=== PATIENT | female | born 1970 | race Caucasian/White ===

== ENCOUNTER → 2020-08-06 12:52 | Outpatient (CLI) | payer OTHER, SELFPAY ==
[2020-08-06 14:53] LABS: COVID19 -Nasal RAPID Negative (Negative)
== END ==
PROVIDERS: Visit Provider Obstetrics & Gynecology
DX: Z01.812 Encounter for preprocedural laboratory examination (principal); Z20.822 Contact with and (suspected) exposure to COVID-19
CPT/HCPCS: 87635

== ENCOUNTER 2020-08-09 07:40 | Day surgery (SDC) | payer OTHER, SELFPAY ==
[2020-08-07 08:20] VITALS: BMI 23.2
[2020-08-09] VITALS (16 sets, daily range): BP systolic 84–119; BP diastolic 57–73; PULSE 68–85; RESP 10–20; TEMP 36.2–37.1; O2SAT 93–100; BMI 23.2
--- NOTE | 2020-08-09 | PATH_ITS ---
[facility] Accession Number: [id number] . 01 Material submitted: . uterus - UTERUS WITH BILATERAL FALLOPIAN TUBES . 02 Diagnosis: Uterus with Bilateral Fallopian Tubes, Hysterectomy and Bilateral Salpingectomy (Weight 114 grams): Cervix with diffuse regions of parakeratosis, suggestive of prolapse, and with reactive features; negative for squamous dysplasia or malignancy. Inflamed endocervix; negative for glandular dysplasia or malignancy. Weakly proliferative endometrium; negative for glandular hyperplasia, cytologic atypia or malignancy. Myometrium with no significant histomorphologic abnormality. Uterine serosa with no significant histomorphologic abnormality. Fallopian tubes x2 with multiple benign paratubal cysts (1-10 mm in greatest dimension); negative for epithelial atypia or malignancy. [facility] 08/13/2020 1112 Local . 02 Electronically signed: . Makayla Wynn MD, Pathologist NPI- [id number] . 01 Gross description: . The specimen is received in formalin, labeled uterus with bilateral fallopian tubes and consists of a 114-gram uterus, cervix and attached bilateral fallopian tubes. The specimen measures 10.0 cm from superior fundus to cervix by 6.0 cm from cornu to cornu by 4.8 cm from anterior to posterior. The serosa is olvera-pink and smooth. The olvera-pink wrinkled ectocervix measures 4.5 x 3.6 cm and there is a 0.9 x 0.5 cm circular probe-patent os. The specimen is bivalved to reveal a olvera-pink herringbone endocervical mucosa. The endometrial cavity measures 4.3 x 2.0 cm and displays a olvera-pink glistening to focally ragged endometrium measuring 0.2 cm in thickness. The myometrium is olvera-pink and trabeculated, measuring 1.9 cm in thickness. The right fallopian tube measures 7.0 cm in length by 0.9 cm in diameter, and the left tube measures 6.0 cm in length by 0.9 cm in diameter. The serosa is pink-purple to olvera-pink and smooth with multiple paratubal cysts ranging from 0.1 to 1.0 cm. Sectioning reveals a olvera mucosa and a stellate lumen measuring 0.4 cm in diameter. Clinic Manager sections are submitted. . A1 - anterior cervix. A2 - posterior cervix. A3 - anterior uterus, full-thickness sections. A4 - posterior uterus, full-thickness sections. A5 - right fallopian tube, order entry representative cross-sections and bisected fimbria. A6-A7 - left fallopian tube, order entry representative cross-sections and bisected fimbria. ([id number]) /MRV 08/10/2020 1342 Local . 02 Pathologist provided ICD-10: N81.6, N81.10, N81.4, N39.3 . 02 CPT . 107576 Performed at: 01 [facility] [address] [place] [address], [place], [place] [id number] MD Raimundo Fu MD Phone: [phone] Performed at: 02 [facility] [address] [place], [place] [id number] MD Jane Alonzo MD Phone: [phone]
--- NOTE | 2020-08-09 07:59 | SUR.OPER ---
Lithotomy on padded OR bed. [place] Pad Positioner under torso. Head on pillow, arms padded and tucked at sides. Legs secured in padded yellow fins stirrups.
[2020-08-09] MEDS: LACTATED RINGERS 1,000 ML 100 ML IV ×4 (08:05→21:39)
[2020-08-09] MEDS: CEFAZOLIN 2 GM/100 ML FROZ.PIGGY IV (08:15)
--- NOTE | 2020-08-09 08:15 | PM.PREOP ---
Pre-operative Note COVID-19 COVID-19 status: Negative Result date/Date tested (Pos, Neg/Pending): 08/06/20 Interval Note History & Physical reviewed/Exam performed by Physician: Yes Changes to H&P: No H&P completed within 30 days and has changed as indicated here:: 08/06/2020
[2020-08-09] MEDS: BUPIVACAINE 0.5% W/ EPI (PF) 30 ML VIAL INJ (08:58)
--- NOTE | 2020-08-09 11:15 | PM.GYNOP.1 ---
Operative Date/Time/Diagnoses Date of procedure: 08/09/20 Time of procedure: 11:15 Pre-op diagnosis: Uterine prolapse Cystocele Stress Urinary Incontinence Post-op diagnosis: same Procedure & Clinicians Procedure: Procedures Operation Date: 08/09/20 08:15 Actual Procedures Side Surgeon p Laparoscopic Assisted Vag Hysterectomy bilateral salpingectomy MD giovanny Valle Anterior/Posterior Repair, TVT with cystoscopy Cristina Helton MD Indications: Uterine prolapse Cystocele Stress urinary incontinence Surgeon: Cristina Helton Mental Health Advanced Practice Nurse: Virginia Ashton Anesthesia Type: General and Local Operative Notes Findings: Six week size prolapsed uterus Normal tubes and ovaries Normal appendix, liver, and gallbladder Closure Type: primary Specimen(s): left tube, right tube and uterus Applied: catheter (To continuous drainage) Estimated blood loss (mL): 150 Blood products transfused: none Procedure in detail: The patient was taken to the operating room where she was placed in the dorsal supine position. After adequate general endotracheal anesthesia was achieved, she was placed in the dorsal lithotomy position, and prepped and draped in the usual sterile fashion. A time-out was performed. A bivalve speculum was placed into the vagina and the anterior lip of the cervix was grasped with a single-tooth tenaculum. The cervical os was sequentially dilated until the Zumi uterine manipulator could pass easily into the endometrial cavity. The single-tooth tenaculum was removed from the anterior lip of the cervix. The bivalve speculum was removed from the vagina. Attention was then turned to the abdomen where 4 cc of 0.25% Marcaine with epinephrine were injected in the umbilical fold. A 5 mm incision was made. The Veress needle was placed into the peritoneal cavity, and its placement confirmed by aspiration and drop test. The abdominal cavity was insufflated with 3.4 L of CO2. The Veress needle was removed, and a 5 mm trocar was placed without difficulty. Two other incisions were made after 4 cc of 0.25% Marcaine with epinephrine were injected, two 5 mm trocars were placed under direct visualization. The right tube was grasped with an atraumatic grasper and the college sports assistant cauterized and cut the mesosalpinx on the right side all the way down to the cornua of the uterus. She then cauterized and cut the utero-ovarian vessels, the broad ligament, and round ligament all the way down to the level of the uterine arteries. This was repeated on the left side with the college sports assistant retracting the left tube and left cornu of the uterus. The instruments were removed from the abdomen. Attention was then turned to the vagina, where the cervix was grasped with a 4 tooth tenaculum. 10 cc of 0.25% Marcaine with epinephrine were injected circumferentially around the cervix. The cervix was circumscribed with a # 10 blade. Using an open moistened Ray-Ellie, the bladder and rectum were dissected off the lower uterine segment and cervix. Anteriorly the peritoneum was identified and entered sharply with the Metzenbaum scissors. A Anh was placed into the anterior cul-de-sac. Posteriorly the peritoneum was grasped with a pickup and entered sharply with the Metzenbaum scissors. The long weighted speculum was placed into the posterior cul-de-sac. The uterosacral cardinal ligament complex on the right was clamped, transected, and suture ligated with 0 Vicryl with the college sports assistant retracting the uterus to the opposite side. This was repeated on the left side with the uterus retracted to the right side by the college sports assistant. The pedicles were tagged with a hemostat. The uterine arteries were clamped, transected, and suture ligated with 0 Vicryl. The uterus and tubes were handed off as specimen. The peritoneum was closed with 2-0 Vicryl in a pursestring suture. The vaginal cuff was closed with simple interrupted sutures with 0 Vicryl. Attention was turned to the anterior wall of the vagina, where 2 Allis clamps were placed at the apex of the cystocele. 3 cc of 0.25% Marcaine with epinephrine were injected and an incision was made between the 2 Allis clamps were is on tele. Wide Allis clamps were placed in the midline of the cystocele, approximately 4. 10 cc of 0.25% Marcaine with epinephrine were injected on either side of the Allis clamps submucosally. The mucosa was undermined with the Metzenbaum scissors and the wide Allis clamps were moved to the edges of the mucosa. Using a 10. Blade, and an open moistened Ray-Ellie with retraction from the college sports assistant, the fascia was dissected off of the mucosa. The fascia was reapproximated with 0 Vicryl with horizontal mattress sutures. The excess vaginal mucosa was excised. The mucosa was closed with 2 0 Vicryl with simple interrupted sutures including the underlying fascia to close the space. The college sports assistant retracted and cut suture. A decision was made to not proceed with a sacral spinous ligament fixation due to the length of the vagina. The catheter was removed from the bladder. 100 cc of injectable saline was injected behind the pubic symphysis into the space of Retzius with a spinal needle. 3 cc of cord % Marcaine with epinephrine were injected submucosally approximately 1.5 cm from the urethral meatus. A 1 cm incision was made. This was dissected out laterally with the Metzenbaum scissors. A rigid catheter was placed into the bladder and placed along the patient's left thigh retracting the bladder away from the patient's left side. 10 cc of 0.25% Marcaine with epinephrine were injected along the proposed tract of the TVT on the left side. This was repeated on the patient's right side with the bladder retracted away from the patient's right side. Using Hegar dilators up to the # 6, the proposed path of the TVT was dissected bluntly with the Hegar dilators with the bladder retracted away from the side being dilated. With an Allis clamp in the midline of the overlapping plastic on the TVT, the TVT was directed towards the patient's left shoulder with the bladder retracted away from the left side. The TVT was directed up behind the pubic symphysis and an incision was made approximately 3 finger breaths from the midline and the TVT introducer was pulled through the anterior abdominal wall. This was all repeated on the patient's right side with the bladder retracted away from the patient's right side. The bladder was filled with 240 cc of sterile water. A cystoscopy was performed and there was a small piece of introducer visible in the bladder on the patient's left side. The bladder was emptied and the bladder was retracted away from the patient's right side and the TVT was again directed towards the patient's left shoulder and up behind the pubic symphysis. The introducer was pulled through the anterior abdominal wall. The cystoscopy was repeated and there was no breach of the bladder. The TVT was then pulled with a space of about 5 mm between the urethra and the TVT vaginally. The patient was made to cough and there was no leaking of urine. The introducers of the TVT were cut and the plastic surrounding the TVT was grasped with hemostats. The plastic sheath on the TVT was removed with the help of the college sports assistant pulling on hemostats attached to the plastic. The TVT was then cut below the skin line with care not to overtighten vaginally. Pressure was held for hemostasis in the midline vaginally. The college sports assistant closed the incisions on the abdomen. The vaginal incision was closed with 4-0 Vicryl with a running interlocking stitch. Hemostasis was achieved. Allis clamps were placed at the mucocutaneous junction of the vagina. 6 cc of 0.5% Marcaine with epinephrine were injected. An incision was made between the 2 Allis clamps and a triangular piece of skin and underlying subcutaneous layer was excised. The levator muscle was reapproximated with 0 Vicryl. The vaginal mucosa and subcutaneous layer were closed with 2-0 Vicryl in simple interrupted sutures. The skin was closed with 2 0 chromic in a subcuticular fashion. Vaginal packing was placed. The catheter in the bladder was hooked to a bag. There was no blood in the urine. Sponge, lap, and instrument counts were correct x2. The patient tolerated the procedure well, and was taken to PACU in stable condition. Complications: none Post-operative Condition: stable Disposition: PACU Plan for aftercare: To acute care after recovery
--- NOTE | 2020-08-09 11:40 | SUR.PHASEI ---
Pt. into phase 1 at 1114, unable to fix it in chart for some reason...
[2020-08-09] MEDS: OXYCODONE/ACETAMINOPHEN 5/325 TABLET 1 TAB PO ×3 (11:46→20:44)
[2020-08-09] MEDS: KETOROLAC 30 MG/ML VIAL IV ×3 (13:05→23:23)
[2020-08-09] MEDS: INFLUENZA VACCINE 0.5 ML SYRINGE IM (14:17)
--- NOTE | 2020-08-09 15:31 | PC.NURSE ---
Pt to floor from PACU at 1200 with Bautista draining to gravity, RA, A&O X4, pt denies nausea and pain, oriented to call light and room; IV fluids infusing; IS 2000 X 10 breaths; pt will use call light for pain medication when needed
[2020-08-09 15:43] LABS: Estimated Glomerular Filt Rate > 60.0 mL/min (>60)
[2020-08-09] MEDS: DOCUSATE 250 MG CAPSULE PO (20:44)
[2020-08-09] MEDS: HYDROMORPHONE 0.5 MG INJ IV (23:59)
[2020-08-10] VITALS: BP 99/59; PULSE 106; RESP 22; TEMP 36.4; O2SAT 100
--- NOTE | 2020-08-10 00:18 | PC.NURSE ---
Evening Shift Note- patient called complaining of increased pain or 8-9/10 to LLQ. Patient shaking uncontrollably due eden pain. Patiehnt reports it hurts to even touch LLQ lap site with even the sheet. Vial signs WNL. No swelling or change of color to LLQ lap site. Called hakeem BHARDWAJ. Recieved a one time order for IV dilaudid and orders to call back in it did not help. IV dialudid given and patient reassessed after 20min. Patient appears to be resting quietly in bed with eyes closed at this time. Safety measures in place. Call mehta and phone within reach. will continue to monitorl.
[2020-08-10] MEDS: OXYCODONE/ACETAMINOPHEN 5/325 TABLET 1 TAB PO ×3 (01:03→09:12)
[2020-08-10 05:00] VITALS: BP 104/65; PULSE 76; RESP 20; TEMP 36.5; O2SAT 100
[2020-08-10 05:35] LABS: Add Manual Diff / Slide Review NO; Basophils Absolute Auto 0 /uL (0-100); Basophils Percent Auto 0.2 % (0-2); Eosinophils Absolute Auto 0 /uL (0-450); Eosinophils Percent Auto 0.1 % (2-4); Hematocrit 31.2 % (36-46); Hemoglobin 10.7 g/dL (12.0-16.0); Lymphocytes Absolute Auto 1600 /uL (1100-4500); Lymphocytes Percent Auto 10.9 % (25-40); Mean Corpuscular HGB Conc 34.3 % (30-36); Mean Corpuscular Volume 84.5 fL (80-100); Monocytes Absolute Auto 1100 /uL (0-900); Monocytes Percent Auto 7.6 % (3-14); Neutrophils Absolute Auto 11600 /uL (1500-7000); Neutrophils Percent Auto 81.2 % (50-75); Platelet Count 230 X10^3/uL (150-400); Red Blood Cell Count 3.69 X10^6/uL (4.0-5.2); Red Cell Distribution Width 12.6 % (11.6-14.8); White Blood Cell Count 14.3 X10^3/uL (4.5-11.0)
[2020-08-10] MEDS: KETOROLAC 30 MG/ML VIAL IV (06:25)
[2020-08-10 07:45] VITALS: BP 102/55; PULSE 72; RESP 16; TEMP 36.2; O2SAT 100
--- NOTE | 2020-08-10 08:10 | PC.NURSE ---
SHIFT NOTE: CALLED DR WAN, RECEIVED VTO TO REMOVE PACKING. PACKING REMOVED PER ORDER, PATIENT TOLERATED WELL. ASSISTED PATIENT UP TO RECLINER, FRESH PERIPAD AND DISPOSABLE UNDERWEAR, YEH DRAINING WITH LIGHT YELLOW CLEAR URINE. PATIENT RATES PAIN 2/10 AT REST.
[2020-08-10] MEDS: CITALOPRAM 10 MG TABLET 60 MG PO (08:15)
[2020-08-10] MEDS: DOCUSATE 250 MG CAPSULE PO (08:15)
--- NOTE | 2020-08-10 11:33 | PC.NURSE ---
DISCHARGE: PATIENT UP TO RECLINER FOR BREAKFAST AT START OF SHIFT. IV SL'D. TOLERATED WELL. ICE PACK TO INCISIONS. TOLERATING PAIN LEVELS WITH MEDS ORDERED. SCANT VAGINAL BLEEDING. PACKING WAS REMOVED EARLY THIS AM, AFTER CALL TO CLARIFY ORDER W/ DR. WAN THIS AM. PATIENT'S SPOUSE ARRIVED. LEGBAG AND YEH CATH CARE AND TEACHING PROVIDED TO THEM BOTH. PATIENT ABLE TO PERFORM INDEP WITH VERBAL CUES THROUGHOUT. CONFIRMS UNDERSTANDING IMPORTANCE OF KEEPING PORTS CLEAN WHEN WITH ALCOHOL WIPES. MANY SUPPLIED TO HER. HANDOUTS PROVIDED ON YEH CARE AND REVIEWED W/ PATIENT SHE CONFIRMS UNDERSTANDING. INFORMED HER THAT IF SHE IS CONCERNED, IS NOT HAVING UOP, OR HAVING INCREASED ABD PAIN TO CALL CLINIC AND SPEAK W/ THE DOCTOR PORTABLE IRRIGATION OPERATOR, OR PRESENT TO THE EMERGENCY DEPT. PATIENT LEFT W/ ALL BELONGINGS AND PAPERWORK WITH RENDERING EQUIPMENT TENDER ESCORT WITHOUT S/SX'S OF DISTRESS. SHE WILL RAMP JOCKEY HER SCRIPTS ON THE WAY HOME.
--- NOTE | 2020-08-10 12:28 | CM.IDA ---
Initial DCP Assessment Note Pt is a 50 yo female, resident of [place], now POD#1 from lap vag hysterectomy and bilateral salpingectomy, cystocele PCP: Yulia Whelan Payer: Azul Reviewed chart, pt discussed in multidisciplinary rounds this morning, patient expected to DC home w/spouse, burrell will remain in until outpatient f/u to remove. Patient eager to return home, no needs identified from this [place], home w/supportive spouse. TATIANA Villagran
--- NOTE | 2020-08-14 06:51 | P.DS_ITS ---
History of Present Illness History of Present Illness Date Patient Seen: 08/10/20 Time Patient Seen: 09:30 Chief complaint: OPB Narrative: Patient is a 50-year-old postop day # 1 status post LAVH/bilateral salpingectomy/anterior repair/TVT with cystoscopy/perineorrhaphy. Her catheter remains in place due to a cystotomy. The vaginal packing has been removed. The patient's pain is well controlled. No nausea or vomiting. She has ambulated and tolerated a diet. Discharge Providers Provider Discharge Date: 08/10/20 Primary care physician: Yulia Whelan PA-C Discharge provider: Cristina Helton MD Summary Hospital Course Discharge Diagnosis: Status post LAVH/bilateral salpingectomy/anterior repair/TVT with cystoscopy Cystotomy Hospital Course: Patient presented on August 09, 2020 for scheduled LAVH/bilateral salpingectomy/anterior repair/TVT with cystoscopy/perineorrhaphy. She underwent this procedure with complication including cystotomy. Her catheter remains in place. Her vaginal packing was removed this morning. She is discharged home on August 10, 2020 tolerating a diet, pain well controlled, ambulating, and without nausea or vomiting. Status at Discharge Cognitive/behavioral status at discharge: oriented Functional status at discharge: independent ambulation Time Spent with Patient Time spent: Less than 30 minutes Exam Vital Signs (past 8 hours): Oxygen Delivery Method Room Air Oxygen Flow Rate 0 Narrative Exam Narrative: Generally: A well-developed, well-nourished female, no acute distress Lungs: Clear to auscultation bilaterally Cardiovascular: Regular rate and rhythm Abdomen: Soft and flat. Good bowel sounds. Incisions: Clean dry and intact with bandages. Perineum: Small amount of old blood. Urine: Clear, yellow Objective Labs Result Diagrams: 08/10/20 05:15 08/09/20 15:15 [facility] Medical History (Updated 08/13/20 @ 16:57 by Lilliam Stout DO) Abnormal Pap smear of cervix (~1996) Anxiety (~1999) Depression Eczema History of urinary incontinence (~2009) Human papilloma virus (~1996) Infertility (~1999) Shingles (~2008) Uterine prolapse (~2018) Surgical History (Updated 06/17/20 @ 11:12 by Cristina Helton MD) H/O LEEP (~1997) History of breast lump removal (~1993) Status post wisdom tooth extraction Family History (Updated 05/14/20 @ 19:32 by Carolina Hemphill) Father Accident Mother Diabetes mellitus Breast cancer Grandmother Breast cancer Social History household members: spouse Smoking Status: Never smoker Discharge Assessment & Plan Assessment and Plan Assessment: 50-year-old postop day # 1 status post LAVH/bilateral salpingectomy/anterior repair/TVT with cystoscopy/perineorrhaphy Patient doing well with catheter in place. Plan of Treatment: Discharged home Follow-up in 6 days for catheter removal Patient to call with fever, chills, redness or drainage around the incisions, bleeding vaginally more than spotting to light, or if there is blood in the urine. Discharge Plan Discharge Plan Patient Disposition: Home Provider Discharge Comment: Call with fever, chills, redness or drainage around incisions or bleeding vaginally more than spotty to light Ibuprofen 600mg every 6 hours Tylenol 650mg every 6 hours Codeine every 3 hours as needed Stool softner twice a day until back to normal and then once a day Anti nausea medicine as needed Discharge orders & Medications Discharge Orders: Discharge (Order); Ordered 08/10/20 Ordered By: Cristina Helton Prescriptions: New oxycodone 5 mg tablet 5 mg PO QID PRN (Reason: pain) Qty: 30 RF: 0 ondansetron 4 mg tablet,disintegrating 4 mg PO Q6H PRN (Reason: nausea and vomiting) Qty: 14 RF: 2 nitrofurantoin macrocrystal [Macrodantin] 100 mg capsule 100 mg PO BID Qty: 14 RF: 0 Continued citalopram 20 mg tablet See Rx Instructions .ROUTE .COMPLEX Qty: 30 RF: 1 citalopram 40 mg tablet See Rx Instructions .ROUTE .COMPLEX Qty: 30 RF: 1 No Action belladonna alkaloids-opium 16.2-30 mg suppository 1 supp IL QID PRN (Reason: pain) Qty: 12 RF: 0 Follow up/Referrals: Cristina Helton MD [Physician] - 08/15/20 10:30 am (PLEASE KEEP YOUR FOLLOW UP APPOINTMENT WITH DR. HELTON ON THURSDAY FOR YOUR EYH REMOVAL SCHEDULED.) Yulia Whelan PA-C [Primary Care Provider] - Diet/Activity/Treatments Diet: Regular Activity: No heavy lifting, nothing more than a gallon of milk Catheter: 2-way Yeh Skin/Wound/Dressing Care Report to your healthcare provider any signs of infection, such as:: chills, fever, increased pain, unusual drainage and unusual redness Dressing: Remove pink dressings with attached guaze in 3 days Visit Report/Discharge Packet Instructions: DI for Hysterectomy, DI for Laparoscopy, How to Care for Your Yeh Catheter -- Female Stand Alone Forms: Surgery Discharge Discharge Data Primary Care Provider: Yulia Whelan Attending Provider: Cristina Helton VTE Deep Vein Thrombosis/Pulmonary Embolism Present on Admission: No
== END 2020-08-10 11:30 | disposition home or self-care (01) ==
LOC: OR 12:21 → AC 12:21
PROVIDERS: PCP Physician Assistant Medical; Referring Provider Obstetrics & Gynecology; Visit Provider Obstetrics & Gynecology
PROC: 0UT9FZZ Resection of Uterus, Via Natural or Artificial Opening With Percutaneous Endoscopic Assistance (ICD-10-PCS; CPT 58552; principal; 2020-08-09 08:15)
PROC: (CPT 58552; 2020-08-09 08:15)
DX: N81.2 Incomplete uterovaginal prolapse (principal); N39.3 Stress incontinence (female) (male); Z23 Encounter for immunization; N83.8 Other noninflammatory disorders of ovary, fallopian tube and broad ligament
CPT/HCPCS: 58552; 57240; 57288; 36415; 82565; 85025; 90471; 90656; C1771; J0690; J1100; J1170; J1885; J2405; J2704; J3010; Q2038

== ENCOUNTER 2020-08-13 12:47 | Emergency (ER) | payer OTHER, SELFPAY ==
[2020-08-09 12:22] VITALS: BMI 23.2
[2020-08-13] VITALS (10 sets, daily range): BP systolic 108–137; BP diastolic 62–88; PULSE 77–107; RESP 16; TEMP 36.9; O2SAT 97–100
[2020-08-13 13:09] LABS: Appearance Urine UA CLEAR; Bilirubin Urine UA NEGATIVE (NEGATIVE); Color Urine UA YELLOW; Glucose Urine UA NEGATIVE (Negative); Ketones Urine UA NEGATIVE (NEGATIVE); Leukocyte Esterase Urine UA NEGATIVE (NEGATIVE); Nitrite Urine UA NEGATIVE (Negative); Occult Blood Urine UA 3+ (Negative); Protein Urine UA NEGATIVE (Negative); Urobilinogen Urine UA 0.2 E.U./dL (0.2)
[2020-08-13 13:11] LABS: pH Urine UA 6.5 (4.5-8.0)
[2020-08-13 13:18] LABS: Bacteria Urine Few (2-10); Culture Indicated Urine Cult Not Indicated; RBC Urine 30-100/HPF (0-5/HPF); Squamous Epithelial Cell Urine 1-5 /HPF (0-5/HPF); WBC Urine 1-5/HPF (0-5/HPF)
--- NOTE | 2020-08-13 13:21 | ED_ITS ---
HPI - Female Genitourinary <MYA Blankenship - Last Filed: 08/13/20 16:25> General Chief complaint: Urogenital-Female Stated complaint: Surg Thurs, Cath Fell Out, Pain Time Seen by Provider: 08/13/20 12:54 Source: patient and family Mode of arrival: Wheelchair Limitations: no limitations History of Present Illness HPI Narrative: The patient is a 50-year-old female nonsmoker with history of hysterectomy on the 7th with anterior/posterior repair by Dr. Helton at this facility who presents with a chief complaint of severe pain and her Bautista catheter coming out. She states that she is having pain in her lower right quadrant that is significantly worse than prior. She states it is so bad that she shakes at home. She feels very fatigued and ?out of sorts today. She denies any fevers, nausea vomiting or diarrhea. She does note that she felt urine coming down her leg yesterday, and realized that her Bautista catheter had been removed. She states that it was just laying there, with no balloon. The patient was under the impression of a bladder injury during surgery, so she is very concerned that her Bautista came out early. Related Data Previous Rx's Medication Instructions Recorded citalopram 20 mg tablet See Rx Instructions .ROUTE 08/06/20 .COMPLEX #30 tab citalopram 40 mg tablet See Rx Instructions .ROUTE 08/06/20 .COMPLEX #30 tab nitrofurantoin macrocrystal 100 mg PO BID #14 cap 08/10/20 [Macrodantin] ondansetron 4 mg PO Q6H PRN #14 tab 08/10/20 oxycodone 5 mg PO QID PRN #30 tab 08/10/20 belladonna alkaloids-opium 16.2 1 supp NE QID PRN #12 ea 08/13/20 mg-30 mg rectal suppository Allergies Allergy/AdvReac Type Severity Reaction Status Date / Time No Known Drug Allergies Allergy Unverified 08/06/20 14:06 Review of Systems <MYA Blankenship - Last Filed: 08/13/20 16:25> Review of Systems Narrative: GENERAL: Denies chills, fatigue, malaise, fever, sweats. HEENT: Denies sinus pain, ear pain, sore throat, difficulty swallowing, dizziness. RESPIRATORY: Denies dyspnea, cough, wheezing, hemoptysis, sputum. CARDIOVASCULAR: Denies chest pain, palpitations, orthopnea, edema, GASTROINTESTINAL: Denies nausea, vomiting, abdominal pain, diarrhea, constipation, melena. : See HPI MUSCULOSKELETAL: denies weakness, joint pain, or bony pain SKIN: Denies rash, skin lesions, or other NEUROLOGIC: Denies weakness, headache, numbness, change in speech, confusion, seizures, incoordination. PSYCHIATRIC: No concerning psychosocial issues. 12 point review of systems is negative except for those stated above Patient History <INDY BlankenshipP-BC - Last Filed: 08/13/20 16:25> Medical History (Updated 08/13/20 @ 16:57 by Lilliam Stout DO) Abnormal Pap smear of cervix (~1996) Anxiety (~1999) Depression Eczema History of urinary incontinence (~2009) Human papilloma virus (~1996) Infertility (~1999) Shingles (~2008) Uterine prolapse (~2018) Surgical History (Updated 06/17/20 @ 11:12 by Cristina Helton MD) H/O LEEP (~1997) History of breast lump removal (~1993) Status post wisdom tooth extraction Family History (Updated 05/14/20 @ 19:32 by Carolina Hemphill) Father Accident Mother Diabetes mellitus Breast cancer Grandmother Breast cancer alcohol intake frequency: a few times a week Substance Use Type: does not use Exam <INDY BlankenshipP-BC - Last Filed: 08/13/20 16:25> Narrative Exam Narrative: GENERAL: This is a well-nourished, well-developed patient, appears uncomfortable HEAD: Atraumatic. Normocephalic. No temporal or scalp tenderness. EYES: Pupils equal round and reactive. Extraocular motions intact. No scleral icterus. No injection or drainage. ENT: Nose without bleeding, purulent drainage or septal hematoma. Wearing a mask. Airway patent. NECK: Trachea midline. No JVD or lymphadenopathy. Supple, nontender, no meningeal signs. CARDIOVASCULAR: Regular rate and rhythm RESPIRATORY: Clear to auscultation. Breath sounds equal bilaterally. No wheezes, rales, or rhonchi. No cough. No increased respiratory effort. No accessory muscle use. GASTROINTESTINAL: Abdomen soft, active bowel sounds all 4 quadrants. Postoperative dressings on superior abdomen are clean dry and intact, lower abdominal surgical incisions are clean dry intact with no extending erythema. Pain to palpation with guarding noted over suprapubic area as well as left lower quadrant. EXTREMITIES: No clubbing, cyanosis, or edema. No joint tenderness, effusion, or edema noted. BACK: Nontender without deformity or crepitance. No flank tenderness. NEURO: AOx3. SKIN: See GI exam. Initial Vital Signs Initial Vital Signs: Vital Signs Temperature 98.4 F 08/13/20 13:05 Pulse Rate 86 08/13/20 13:05 Respiratory Rate 16 08/13/20 13:05 Blood Pressure 137/68 08/13/20 13:05 Pulse Oximetry 99 08/13/20 13:05 <Lilliam Stout DO - Last Filed: 08/14/20 07:35> Initial Vital Signs Initial Vital Signs: Vital Signs Temperature 98.4 F 08/13/20 13:05 Pulse Rate 86 08/13/20 13:05 Respiratory Rate 16 08/13/20 13:05 Blood Pressure 137/68 08/13/20 13:05 Pulse Oximetry 99 08/13/20 13:05 Scores <MYA Blankenship - Last Filed: 08/13/20 16:25> GCS [place] coma scale eye opening: Spontaneous [place] coma scale verbal response: Orientated Arely coma scale motor response: Obey commands Arely coma scale total score: 15 Course <MYA Blankenship - Last Filed: 08/13/20 16:25> Orders Ordered: Discontinued Medications Acetaminophen (Acetaminophen 325 Mg Tablet) 650 mg PO NOW ONE Stop: 08/13/20 14:15 Last Admin: 08/13/20 14:17 Dose: 650 mg Documented by: GRACIELA Sodium Chloride (Normal Saline 0.9%) 1,000 mls @ 1,000 mls/hr IV BOLUS ONE Stop: 08/13/20 14:13 Last Infusion: 08/13/20 17:11 Dose: 0 mls/hr Documented by: Infusion: 08/13/20 14:41 Dose: 1,000 mls/hr Documented by: Infusion: 08/13/20 13:49 Dose: 0 mls/hr Documented by: Admin: 08/13/20 13:47 Dose: 1,000 mls/hr Documented by: GRACIELA Morphine Sulfate (Morphine 2 Mg/Ml Inj) 2 mg IV NOW ONE Stop: 08/13/20 13:26 Last Admin: 08/13/20 17:11 Dose: Not Given Documented by: MURALI Ondansetron HCl (Ondansetron 4 Mg/2 Ml Inj) 4 mg IV NOW ONE Stop: 08/13/20 13:26 Last Admin: 08/13/20 17:11 Dose: Not Given Documented by: MURALI Oxycodone HCl (Oxycodone Ir 5 Mg Tablet) 5 mg PO NOW ONE Stop: 08/13/20 14:07 Last Admin: 08/13/20 14:10 Dose: 5 mg Documented by: GRACIELA Vital Signs Vital signs: Vital Signs - 8 hr 08/13/20 13:05 08/13/20 13:20 08/13/20 13:30 Temperature 98.4 F Pulse Rate 86 82 85 Respiratory Rate 16 Blood Pressure 137/68 Pulse Oximetry 99 99 99 08/13/20 14:05 08/13/20 14:06 08/13/20 14:31 Temperature Pulse Rate 88 87 107 H Respiratory Rate Blood Pressure 113/63 Pulse Oximetry 98 100 100 08/13/20 14:43 08/13/20 15:00 08/13/20 15:30 Temperature Pulse Rate 82 80 84 Respiratory Rate Blood Pressure 114/66 118/62 118/62 Pulse Oximetry 97 98 97 <Lilliam Stout DO - Last Filed: 08/14/20 07:35> Orders Ordered: Discontinued Medications Acetaminophen (Acetaminophen 325 Mg Tablet) 650 mg PO NOW ONE Stop: 08/13/20 14:15 Last Admin: 08/13/20 14:17 Dose: 650 mg Documented by: GRACIELA Sodium Chloride (Normal Saline 0.9%) 1,000 mls @ 1,000 mls/hr IV BOLUS ONE Stop: 08/13/20 14:13 Last Infusion: 08/13/20 17:11 Dose: 0 mls/hr Documented by: Infusion: 08/13/20 14:41 Dose: 1,000 mls/hr Documented by: Infusion: 08/13/20 13:49 Dose: 0 mls/hr Documented by: Admin: 08/13/20 13:47 Dose: 1,000 mls/hr Documented by: GRACIELA Morphine Sulfate (Morphine 2 Mg/Ml Inj) 2 mg IV NOW ONE Stop: 08/13/20 13:26 Last Admin: 08/13/20 17:11 Dose: Not Given Documented by: MURALI Ondansetron HCl (Ondansetron 4 Mg/2 Ml Inj) 4 mg IV NOW ONE Stop: 08/13/20 13:26 Last Admin: 08/13/20 17:11 Dose: Not Given Documented by: MURALI Oxycodone HCl (Oxycodone Ir 5 Mg Tablet) 5 mg PO NOW ONE Stop: 08/13/20 14:07 Last Admin: 08/13/20 14:10 Dose: 5 mg Documented by: GRACIELA Vital Signs Vital signs: Vital Signs - 8 hr 08/13/20 13:05 08/13/20 13:20 08/13/20 13:30 Temperature 98.4 F Pulse Rate 86 82 85 Respiratory Rate 16 Blood Pressure 137/68 Pulse Oximetry 99 99 99 08/13/20 14:05 08/13/20 14:06 08/13/20 14:31 Temperature Pulse Rate 88 87 107 H Respiratory Rate Blood Pressure 113/63 Pulse Oximetry 98 100 100 08/13/20 14:43 08/13/20 15:00 08/13/20 15:30 Temperature Pulse Rate 82 80 84 Respiratory Rate Blood Pressure 114/66 118/62 118/62 Pulse Oximetry 97 98 97 MDM - Female Genitourinary <INDY BlankenshipP- - Last Filed: 08/13/20 16:25> Lab Data Attestation: I reviewed the patient's lab results. Result diagrams: 08/13/20 14:36 08/13/20 14:36 Labs: Lab Results 08/13/20 08/13/20 08/13/20 Range/Units 12:55 14:36 14:36 WBC 6.8 (4.5-11.0) X10^3/uL RBC 3.29 L (4.0-5.2) X10^6/uL Hgb 9.3 L (12.0-16.0) g/dL Hct 27.9 L (36-46) % MCV 84.8 (80-100) fL MCH 28.4 (26-34) PG MCHC 33.5 (30-36) % RDW 12.6 (11.6-14.8) % Plt Count 229 (150-400) X10^3/uL Neut % (Auto) 72.1 (50-75) % Lymph % (Auto) 21.4 L (25-40) % [place] % (Auto) 4.7 (3-14) % Eos % (Auto) 1.5 L (2-4) % Baso % (Auto) 0.3 (0-2) % Neut # (Auto) 4900 (9379-4537) /uL Lymph # (Auto) 1400 (9079-4649) /uL [place] # (Auto) 300 (0-900) /uL Eos # (Auto) 100 (0-450) /uL Baso # (Auto) 0 (0-100) /uL PT 11.1 (10.1-12.7) SECONDS INR 1.0 (0.9-1.3) APTT 29 (26.4-36.2) SECONDS Sodium (137-145) mmol/L Potassium (3.4-5.1) mmol/L Chloride (98-107) mmol/L Carbon Dioxide (22-32) mmol/L BUN (7-17) mg/dL Creatinine (0.52-1.04) mg/dL Estimated GFR (>60) mL/min BUN/Creatinine Ratio (6-22) Glucose (70-100) mg/dL Lactate (0.7-2.1) mmol/L Calcium (8.4-10.2) mg/dL Total Bilirubin (0.2-1.3) mg/dL AST (14-36) IU/L ALT (<35) IU/L Alkaline Phosphatase (38-126) U/L Total Protein (6.3-8.2) g/dL Albumin (3.5-5.0) g/dL Globulin (1.7-4.1) g/dL Albumin/Globulin Ratio (1.0-2.8) Lipase (23-300) U/L Procalcitonin (<0.5) ng/mL Urine Color Yellow Urine Appearance Clear Urine pH 6.5 (4.5-8.0) Ur Specific [place] 1.010 (1.000-1.035) Urine Protein Negative (Negative) Urine Glucose (UA) Negative (Negative) g/dL Urine Ketones Negative (NEGATIVE) Urine Occult Blood 3+ H (Negative) Urine Nitrate Negative (Negative) Urine Bilirubin Negative (NEGATIVE) Urine Urobilinogen 0.2 (0.2) E.U./dL Ur Leukocyte Esterase Negative (NEGATIVE) Urine RBC 30-100/hpf H (0-5/HPF) Urine WBC 1-5/hpf (0-5/HPF) Ur Squamous Epith Cells 1-5 /hpf (0-5/HPF) Urine Bacteria Few (2-10) H (None) Ur Culture Indicated? Cult not indicated 08/13/20 08/13/20 08/13/20 Range/Units 14:36 14:36 14:36 WBC (4.5-11.0) X10^3/uL RBC (4.0-5.2) X10^6/uL Hgb (12.0-16.0) g/dL Hct (36-46) % MCV (80-100) fL MCH (26-34) PG MCHC (30-36) % RDW (11.6-14.8) % Plt Count (150-400) X10^3/uL Neut % (Auto) (50-75) % Lymph % (Auto) (25-40) % [place] % (Auto) (3-14) % Eos % (Auto) (2-4) % Baso % (Auto) (0-2) % Neut # (Auto) (6527-3214) /uL Lymph # (Auto) (5742-0527) /uL [place] # (Auto) (0-900) /uL Eos # (Auto) (0-450) /uL Baso # (Auto) (0-100) /uL PT (10.1-12.7) SECONDS INR (0.9-1.3) APTT (26.4-36.2) SECONDS Sodium 138 (137-145) mmol/L Potassium 4.2 (3.4-5.1) mmol/L Chloride 106 (98-107) mmol/L Carbon Dioxide 28 (22-32) mmol/L BUN 15 (7-17) mg/dL Creatinine 1.13 H (0.52-1.04) mg/dL Estimated GFR 51.2 L (>60) mL/min BUN/Creatinine Ratio 13.3 (6-22) Glucose 95 (70-100) mg/dL Lactate 0.7 (0.7-2.1) mmol/L Calcium 8.6 (8.4-10.2) mg/dL Total Bilirubin 0.3 (0.2-1.3) mg/dL AST 29 (14-36) IU/L ALT 15 (<35) IU/L Alkaline Phosphatase 49 (38-126) U/L Total Protein 6.7 (6.3-8.2) g/dL Albumin 3.7 (3.5-5.0) g/dL Globulin 3.0 (1.7-4.1) g/dL Albumin/Globulin Ratio 1.2 (1.0-2.8) Lipase 28 (23-300) U/L Procalcitonin < 0.05 (<0.5) ng/mL Urine Color Urine Appearance Urine pH (4.5-8.0) Ur Specific [place] (1.000-1.035) Urine Protein (Negative) Urine Glucose (UA) (Negative) g/dL Urine Ketones (NEGATIVE) Urine Occult Blood (Negative) Urine Nitrate (Negative) Urine Bilirubin (NEGATIVE) Urine Urobilinogen (0.2) E.U./dL Ur Leukocyte Esterase (NEGATIVE) Urine RBC (0-5/HPF) Urine WBC (0-5/HPF) Ur Squamous Epith Cells (0-5/HPF) Urine Bacteria (None) Ur Culture Indicated? Imaging Data CT scan - abdomen/pelvis: Radiologist's Impression: [address] [place] [id number] Scan ReportSigned Patient: Isa Guzman [facility]#: [id number]: 1970Acct:[id number]/Sex: 50 / FDate of Service: 08/13/20Loc: EDAccession Number: [id number] Procedure: CT abdomen pelvis w con Ordering Provider: Ananya Davey- PROCEDURE: CT ABDOMEN PELVIS W CON INDICATIONS: Hysterectomy on 08/09/2020. Complaints of lower abdominal/pelvic pain. TECHNIQUE: After the administration of intravenous contrast, 5 mm thick sections acquired from the diaphragm to the symphysis. 5 mm coronal and sagittal reformats were acquired. For radiation dose reduction, the following was used: automated exposure control, adjustment of mA and/or kV according to patient size. COMPARISON: None. FINDINGS: Image quality: Excellent. ABDOMEN: Lung bases: Lung bases are clear. Heart size is normal. Solid organs: Liver is normal in size and enhancement. Gallbladder is normal. Biliary system is non dilated. Pancreas enhances normally. Spleen is normal in size and enhancement. No adrenal nodules. Kidneys demonstrate normal size and enhancement, without hydronephrosis. Peritoneum and bowel: Bowel loops demonstrate normal wall thickness and caliber. There is a moderate amount of stool in colon. Normal appendix. No free air. There is a small amount of free fluid in the pelvis. Nodes and vessels: No retroperitoneal or mesenteric adenopathy by size criteri a. Aorta and inferior vena cava are normal in size. Miscellaneous: No ventral hernias. PELVIS: Genitourinary: Uterus is absent. There is a small amount of free fluid in pelvis. No organized fluid collections to suggest abscess. A 1 cm rim enhancing cyst is seen in the left ovary, compatible with a corpus luteum. A small amount of air collection is present within the bladder lumen. Bladder wall is mildly thickened. Miscellaneous: There is body wall edema in the anterior abdominal wall. Small pockets of subcutaneous gas are seen in the pre pubic area. No inguinal hernias or adenopathy. Small left inguinal lymph nodes likely reactive. Bones: No suspicious bony lesions. No vertebral body compression fractures. IMPRESSION: 1. Uterus is absent consistent with recent hysterectomy. There is small amount of free fluid in pelvis. No organized fluid collections to suggest abscess. 2. Air collection within the bladder lumen. Bladder wall is thickened. Dif ferential diagnosis include cystitis, recent instrumentation or bladder injury. 3. Body wall edema with soft tissue swelling and subcutaneous air collections in the lower anterior abdominal wall/suprapubic area, most likely postsurgical sequelae but postsurgical infection cannot be excluded. The result was discussed with Ananya Davey. Dictated by: Delmy Helm M.D. on 08/13/2020 at 15:53 Approved by: Delmy Helm M.D. on 08/13/2020 at 16:08 [facility] Narrative Medical decision making narrative: The patient is a 50-year-old female who presents 4 days postoperative from an anterior posterior repair and hysterectomy. She after Bautista catheter come out yesterday. She does not appear systemically ill, however is very tender to abdominal wall palpation. Urinalysis has 3+ blood, but is yellow and clear per the laboratory. She has no leukocytosis on her lab work, does not have an elevated lactate. He has noted that her renal function is slightly worse than prior. Given her tenderness to palpationAs well as presumed bladder injury, CT obtained which shows some free air in her bladder and abdominal cavity thought to be postsurgical. She also has bladder inflammation. I spoke with Dr. Helton, who would like her Bautista catheter to be reinserted. She will reach out to Dr. Styles for regarding further recommendations. The patient signed out to Dr Stout at 4:30 p.m.. Waiting for further recommendations. <Lilliam Stout, DO - Last Filed: 08/14/20 07:35> Lab Data Attestation: I reviewed the patient's lab results. Labs: Lab Results 08/13/20 08/13/20 08/13/20 Range/Units 12:55 14:36 14:36 WBC 6.8 (4.5-11.0) X10^3/uL RBC 3.29 L (4.0-5.2) X10^6/uL Hgb 9.3 L (12.0-16.0) g/dL Hct 27.9 L (36-46) % MCV 84.8 (80-100) fL MCH 28.4 (26-34) PG MCHC 33.5 (30-36) % RDW 12.6 (11.6-14.8) % Plt Count 229 (150-400) X10^3/uL Neut % (Auto) 72.1 (50-75) % Lymph % (Auto) 21.4 L (25-40) % [place] % (Auto) 4.7 (3-14) % Eos % (Auto) 1.5 L (2-4) % Baso % (Auto) 0.3 (0-2) % Neut # (Auto) 4900 (6242-2001) /uL Lymph # (Auto) 1400 (4250-6396) /uL [place] # (Auto) 300 (0-900) /uL Eos # (Auto) 100 (0-450) /uL Baso # (Auto) 0 (0-100) /uL PT 11.1 (10.1-12.7) SECONDS INR 1.0 (0.9-1.3) APTT 29 (26.4-36.2) SECONDS Sodium (137-145) mmol/L Potassium (3.4-5.1) mmol/L Chloride (98-107) mmol/L Carbon Dioxide (22-32) mmol/L BUN (7-17) mg/dL Creatinine (0.52-1.04) mg/dL Estimated GFR (>60) mL/min BUN/Creatinine Ratio (6-22) Glucose (70-100) mg/dL Lactate (0.7-2.1) mmol/L Calcium (8.4-10.2) mg/dL Total Bilirubin (0.2-1.3) mg/dL AST (14-36) IU/L ALT (<35) IU/L Alkaline Phosphatase (38-126) U/L Total Protein (6.3-8.2) g/dL Albumin (3.5-5.0) g/dL Globulin (1.7-4.1) g/dL Albumin/Globulin Ratio (1.0-2.8) Lipase (23-300) U/L Procalcitonin (<0.5) ng/mL Urine Color Yellow Urine Appearance Clear Urine pH 6.5 (4.5-8.0) Ur Specific [place] 1.010 (1.000-1.035) Urine Protein Negative (Negative) Urine Glucose (UA) Negative (Negative) g/dL Urine Ketones Negative (NEGATIVE) Urine Occult Blood 3+ H (Negative) Urine Nitrate Negative (Negative) Urine Bilirubin Negative (NEGATIVE) Urine Urobilinogen 0.2 (0.2) E.U./dL Ur Leukocyte Esterase Negative (NEGATIVE) Urine RBC 30-100/hpf H (0-5/HPF) Urine WBC 1-5/hpf (0-5/HPF) Ur Squamous Epith Cells 1-5 /hpf (0-5/HPF) Urine Bacteria Few (2-10) H (None) Ur Culture Indicated? Cult not indicated 08/13/20 08/13/20 08/13/20 Range/Units 14:36 14:36 14:36 WBC (4.5-11.0) X10^3/uL RBC (4.0-5.2) X10^6/uL Hgb (12.0-16.0) g/dL Hct (36-46) % MCV (80-100) fL MCH (26-34) PG MCHC (30-36) % RDW (11.6-14.8) % Plt Count (150-400) X10^3/uL Neut % (Auto) (50-75) % Lymph % (Auto) (25-40) % [place] % (Auto) (3-14) % Eos % (Auto) (2-4) % Baso % (Auto) (0-2) % Neut # (Auto) (3315-9413) /uL Lymph # (Auto) (6620-4563) /uL [place] # (Auto) (0-900) /uL Eos # (Auto) (0-450) /uL Baso # (Auto) (0-100) /uL PT (10.1-12.7) SECONDS INR (0.9-1.3) APTT (26.4-36.2) SECONDS Sodium 138 (137-145) mmol/L Potassium 4.2 (3.4-5.1) mmol/L Chloride 106 (98-107) mmol/L Carbon Dioxide 28 (22-32) mmol/L BUN 15 (7-17) mg/dL Creatinine 1.13 H (0.52-1.04) mg/dL Estimated GFR 51.2 L (>60) mL/min BUN/Creatinine Ratio 13.3 (6-22) Glucose 95 (70-100) mg/dL Lactate 0.7 (0.7-2.1) mmol/L Calcium 8.6 (8.4-10.2) mg/dL Total Bilirubin 0.3 (0.2-1.3) mg/dL AST 29 (14-36) IU/L ALT 15 (<35) IU/L Alkaline Phosphatase 49 (38-126) U/L Total Protein 6.7 (6.3-8.2) g/dL Albumin 3.7 (3.5-5.0) g/dL Globulin 3.0 (1.7-4.1) g/dL Albumin/Globulin Ratio 1.2 (1.0-2.8) Lipase 28 (23-300) U/L Procalcitonin < 0.05 (<0.5) ng/mL Urine Color Urine Appearance Urine pH (4.5-8.0) Ur Specific [place] (1.000-1.035) Urine Protein (Negative) Urine Glucose (UA) (Negative) g/dL Urine Ketones (NEGATIVE) Urine Occult Blood (Negative) Urine Nitrate (Negative) Urine Bilirubin (NEGATIVE) Urine Urobilinogen (0.2) E.U./dL Ur Leukocyte Esterase (NEGATIVE) Urine RBC (0-5/HPF) Urine WBC (0-5/HPF) Ur Squamous Epith Cells (0-5/HPF) Urine Bacteria (None) Ur Culture Indicated? MDM Narrative Medical decision making narrative: Received sign-out from Ananya michel. 4:40 p.m. I spoke with Dr. Helton myself. She spoke with Dr. Styles urology reviewed CT. Recommends a bladder rest Bautista catheter of B& O suppository and MiraLax to help with constipation. Dr. ballard office will follow up with her this week and call her tomorrow. Discharge Plan Departure Patient Disposition: Home Clinical Impression: Constipation Instructions: DI for Constipation, How to Care for Your Bautista Catheter -- Female Activity Restrictions/Additional Instructions: *You have been diagnosed with constipation *What to do: Dr. Helton has spoken with Urology. At this time bladder rest is recommended. Please keep Bautista catheter in place until further notice. Also MiraLax should help with constipation and subsequently help with your abdominal pain and other symptoms. *Continue to take medications as directed Prescriptions of MiraLax and B&O suppository has been called into [facility] per Dr. Helton *Follow up with your primary care provider in 2-3 days *Return to ER if you should have increasing pain, blood in urine or any new, worsening or concerning symptoms Prescriptions: No Action citalopram 20 mg tablet See Rx Instructions .ROUTE .COMPLEX Qty: 30 RF: 1 citalopram 40 mg tablet See Rx Instructions .ROUTE .COMPLEX Qty: 30 RF: 1 belladonna alkaloids-opium 16.2-30 mg suppository 1 supp NE QID PRN (Reason: pain) Qty: 12 RF: 0 oxycodone 5 mg tablet 5 mg PO QID PRN (Reason: pain) Qty: 30 RF: 0 ondansetron 4 mg tablet,disintegrating 4 mg PO Q6H PRN (Reason: nausea and vomiting) Qty: 14 RF: 2 nitrofurantoin macrocrystal [Macrodantin] 100 mg capsule 100 mg PO BID Qty: 14 RF: 0 Referrals: Cristina Helton MD [Physician] - Yulia Whelan PA-C [Primary Care Provider] - <Lilliam Stout DO - Last Filed: 08/14/20 07:35> Cosign ED Attending Oliviaature Attestation: I was immediately available in the department for consultation. Documentation has been reviewed. I agree with as sessment and plan.
[2020-08-13] MEDS: SODIUM CHLORIDE 0.9% 1,000 ML 1000 ML IV (13:47)
--- NOTE | 2020-08-13 13:57 | PC.NURSE ---
Attempted IV x 2 (right AC and left hand) w/o success. Previous RN had tried twice as well w/o success. One blood culture obtained from right AC. Called radiology nurse for US assist.
[2020-08-13] MEDS: OXYCODONE IR 5 MG TABLET PO (14:10)
--- NOTE | 2020-08-13 14:10 | DI.CT.S_ITS ---
PROCEDURE: CT ABDOMEN PELVIS W CON INDICATIONS: Hysterectomy on 08/09/2020. Complaints of lower abdominal/pelvic pain. TECHNIQUE: After the administration of intravenous contrast, 5 mm thick sections acquired from the diaphragm to the symphysis. 5 mm coronal and sagittal reformats were acquired. For radiation dose reduction, the following was used: automated exposure control, adjustment of mA and/or kV according to patient size. COMPARISON: None. FINDINGS: Image quality: Excellent. ABDOMEN: Lung bases: Lung bases are clear. Heart size is normal. Solid organs: Liver is normal in size and enhancement. Gallbladder is normal. Biliary system is non dilated. Pancreas enhances normally. Spleen is normal in size and enhancement. No adrenal nodules. Kidneys demonstrate normal size and enhancement, without hydronephrosis. Peritoneum and bowel: Bowel loops demonstrate normal wall thickness and caliber. There is a moderate amount of stool in colon. Normal appendix. No free air. There is a small amount of free fluid in the pelvis. Nodes and vessels: No retroperitoneal or mesenteric adenopathy by size criteria. Aorta and inferior vena cava are normal in size. Miscellaneous: No ventral hernias. PELVIS: Genitourinary: Uterus is absent. There is a small amount of free fluid in pelvis. No organized fluid collections to suggest abscess. A 1 cm rim enhancing cyst is seen in the left ovary, compatible with a corpus luteum. A small amount of air collection is present within the bladder lumen. Bladder wall is mildly thickened. Miscellaneous: There is body wall edema in the anterior abdominal wall. Small pockets of subcutaneous gas are seen in the pre pubic area. No inguinal hernias or adenopathy. Small left inguinal lymph nodes likely reactive. Bones: No suspicious bony lesions. No vertebral body compression fractures. IMPRESSION: 1. Uterus is absent consistent with recent hysterectomy. There is small amount of free fluid in pelvis. No organized fluid collections to suggest abscess. 2. Air collection within the bladder lumen. Bladder wall is thickened. Differential diagnosis include cystitis, recent instrumentation or bladder injury. 3. Body wall edema with soft tissue swelling and subcutaneous air collections in the lower anterior abdominal wall/suprapubic area, most likely postsurgical sequelae but postsurgical infection cannot be excluded. The result was discussed with Ananya Davey. Dictated by: Delmy Helm M.D. on 08/13/2020 at 15:53 Approved by: Delmy Helm M.D. on 08/13/2020 at 16:08
[2020-08-13] MEDS: ACETAMINOPHEN 325 MG TABLET 650 MG PO (14:17)
[2020-08-13 14:46] LABS: Add Manual Diff / Slide Review NO; Basophils Absolute Auto 0 /uL (0-100); Basophils Percent Auto 0.3 % (0-2); Eosinophils Absolute Auto 100 /uL (0-450); Eosinophils Percent Auto 1.5 % (2-4); Hematocrit 27.9 % (36-46); Hemoglobin 9.3 g/dL (12.0-16.0); Lymphocytes Absolute Auto 1400 /uL (1100-4500); Lymphocytes Percent Auto 21.4 % (25-40); Mean Corpuscular HGB Conc 33.5 % (30-36); Mean Corpuscular Hemoglobin 28.4 PG (26-34); Mean Corpuscular Volume 84.8 fL (80-100); Monocytes Absolute Auto 300 /uL (0-900); Monocytes Percent Auto 4.7 % (3-14); Neutrophils Absolute Auto 4900 /uL (1500-7000); Neutrophils Percent Auto 72.1 % (50-75); Platelet Count 229 X10^3/uL (150-400); Red Blood Cell Count 3.29 X10^6/uL (4.0-5.2); Red Cell Distribution Width 12.6 % (11.6-14.8); White Blood Cell Count 6.8 X10^3/uL (4.5-11.0)
[2020-08-13 14:53] LABS: Prothrombin Time 11.1 SECONDS (10.1-12.7)
[2020-08-13 14:55] LABS: PTT Partial Thromboplastin Tim 29 SECONDS (26.4-36.2)
[2020-08-13 15:03] LABS: Lactate (Lactic Acid) 0.7 mmol/L (0.7-2.1)
[2020-08-13 15:14] LABS: Alanine Aminotransferase 15 IU/L (<35); Albumin 3.7 g/dL (3.5-5.0); Albumin Globulin Ratio 1.2 (1.0-2.8); Alkaline Phosphatase 49 U/L (38-126); Aspartate Aminotransferase 29 IU/L (14-36); BUN Creatinine Ratio 13.3 (6-22); Bilirubin Total 0.3 mg/dL (0.2-1.3); Blood Urea Nitrogen 15 mg/dL (7-17); Calcium 8.6 mg/dL (8.4-10.2); Carbon Dioxide 28 mmol/L (22-32); Chloride 106 mmol/L (98-107); Estimated Glomerular Filt Rate 51.2 mL/min (>60); Glucose 95 mg/dL (70-100); HEMOLYSIS < 15 (0-50); Lipase 28 U/L (23-300); Potassium 4.2 mmol/L (3.4-5.1); Sodium 138 mmol/L (137-145); Total Protein 6.7 g/dL (6.3-8.2)
[2020-08-13 15:33] LABS: Procalcitonin < 0.05 ng/mL (<0.5)
== END 2020-08-13 17:10 | disposition home or self-care (01) ==
PROVIDERS: Emergency Provider Nurse Practitioner Family; PCP Physician Assistant Medical; Referring Provider Obstetrics & Gynecology
DX: K59.00 Constipation, unspecified (principal); R10.31 Right lower quadrant pain
CPT/HCPCS: 36415; 51701; 51705; 51798; 74177; 80053; 81001; 83605; 83690; 84145; 85025; 85610; 85730; 87040; 93005; 93010; 96360; 96361; 99283; 99284

== ENCOUNTER → 2024-11-22 14:06 | Outpatient (CLI) | payer OTHER, SELFPAY ==
[2020-08-09 12:22] VITALS: BMI 23.2
== END ==
PROVIDERS: PCP Physician Assistant Medical; Visit Provider Obstetrics & Gynecology
DX: R82.998 Other abnormal findings in urine (principal); R31.9 Hematuria, unspecified
CPT/HCPCS: 87086; 87147